=== PATIENT | male | born 1995 | race Caucasian/White ===

== ENCOUNTER 2023-10-31 10:19 | Emergency (ER) | payer OTHER ==
[~2023-10-31] VITALS: Ht 185.4 cm; Wt 100.9 kg
[2023-10-31] MEDS ORDERED: OMEP40CA5 PO (10:36)
[2023-10-31] MEDS ORDERED: DICY-61 PO (10:36)
[2023-10-31] MEDS: METOCLOPRAMIDE INJ 10MG/2ML VIAL IV ONE (12:14)
[2023-10-31] MEDS: KETOROLAC 30 MG/ML 1ML VIAL IV ONE (12:14)
[2023-10-31] MEDS: diphenhydrAMINE 50MG/ML VIAL IV STA (12:14)
[2023-10-31] MEDS: NS 1,000 ML IV ONE (13:01)
[2023-10-31 13:11] VITALS: TEMP 99.7; O2SAT 98
[2023-10-31 13:57] VITALS: BP 126/74
== END 2023-10-31 14:00 | disposition home or self-care (01) ==
LOC: M ED 10:19
DX: J02.9 Acute pharyngitis, unspecified (principal); B34.9 Viral infection, unspecified; Z79.899 Other long term (current) drug therapy
CPT/HCPCS: 87486; 87581; 87633; 87798; 96361; 96374; 99284; J1200; J1885; J2765

== ENCOUNTER → 2024-07-28 | Outpatient (CLI) | payer OTHER ==
[~2024-07-28] MED LIST: DICY-61 PO; OMEP40CA5 PO
== END ==
LOC: M CARPUL 14:36
PROVIDERS: ATTEND Student in an Organized Health Care Education/Training Program
DX: R06.09 Other forms of dyspnea (principal)

== ENCOUNTER → 2024-10-12 | Outpatient (CLI) | payer OTHER | LOC: M RAD 10:45 | PROVIDERS: ATTEND Physician Assistant Medical | DX: R19.4 Change in bowel habit (principal) ==

== ENCOUNTER 2024-10-14 21:50 | Inpatient (IN) | payer OTHER ==
[~2024-10-14] VITALS: Ht 185.4 cm; Wt 110.4 kg
[2024-10-14] MEDS: IBUPROFEN 600MG TAB PO ONE (22:37)
[2024-10-14 22:55] LABS: HEMATOCRIT 43.1 % (42.0-52.0); HEMOGLOBIN 15.4 g/dl (13.5-17.5); MEAN CORPUSCULAR HEMOGLOBIN 30.7 pg (27.0-33.0); MEAN CORPUSCULAR HGB CONC 35.7 g/dl (32.0-36.5); MEAN CORPUSCULAR VOLUME 85.9 fl (80.0-96.0); PLATELET COUNT, AUTOMATED 308 10^3/uL (150-450); RED BLOOD COUNT 5.02 10^6/uL (4.30-6.10); WHITE BLOOD COUNT 10.5 10^3/uL (4.0-10.0)
[2024-10-14 23:19] LABS: AMPHETAMINES LEVEL URINE NEGATIVE (NEGATIVE); BARBITURATES URINE NEGATIVE (NEGATIVE); BENZODIAZEPINES URINE NEGATIVE (NEGATIVE); COCAINE METABOLITE URINE NEGATIVE (NEGATIVE); METHADONE URINE NEGATIVE (NEGATIVE); OPIATES URINE NEGATIVE (NEGATIVE); PHENCYCLIDINE URINE NEGATIVE (NEGATIVE)
[2024-10-14 23:20] LABS: CANNABINOIDS URINE NEGATIVE (NEGATIVE)
[2024-10-14 23:22] LABS: ETHYL ALCOHOL (ETHANOL) < 0.003 % (0.000-0.010)
[2024-10-14 23:23] LABS: SALICYLATE LEVEL < 3.0 MG/DL (<30)
[2024-10-14 23:24] LABS: ALBUMIN 4.4 G/DL (3.2-5.2); ALKALINE PHOSPHATASE 54 U/L (40-129); ALT/SGPT 37 U/L (7.0-40); AST/SGOT 20 U/L (<34); BILIRUBIN,DIRECT 0.1 MG/DL (<0.4); BILIRUBIN,TOTAL 0.4 MG/DL (0.3-1.2); BLOOD UREA NITROGEN 15 MG/DL (9-23); CALCIUM LEVEL 9.5 MG/DL (8.5-10.1); CARBON DIOXIDE LEVEL 24 MMOL/L (20-31); CHLORIDE LEVEL 107 MMOL/L (98-107); GLOMERULAR FILTRATION RATE > 60.0 (>60); GLUCOSE, FASTING 110 MG/DL (60-100); POTASSIUM SERUM 4.2 MMOL/L (3.5-5.1); SODIUM LEVEL 143 MMOL/L (136-145); TOTAL PROTEIN 8.1 G/DL (5.7-8.2)
[2024-10-14 23:26] LABS: THYROID STIMULATING HORMONE 13.153 uIU/ML (0.55-4.78)
[2024-10-15] MEDS: FAMOTIDINE 20 MG TAB PO ONE (00:54)
[2024-10-15] MEDS ORDERED: MOM 30ML SUSPENSION UDC PO PRN (01:20)
[2024-10-15] MEDS ORDERED: traZODone 50 MG TAB PO PRN (01:20)
[2024-10-15] MEDS ORDERED: MAALOX 30 ML SUSP *UDC PO PRN (01:20)
[2024-10-15] MEDS ORDERED: HOME MED LIST COMPLETE! XX SCH (01:30)
[2024-10-15] MEDS ORDERED: MELA5TAB58 PO (01:30)
[2024-10-15] MEDS ORDERED: FAMO1TAB11 PO (01:30)
[2024-10-15] MEDS ORDERED: BUPR-71 PO (01:30)
[2024-10-15] MEDS ORDERED: CELE1CAP99 PO (01:30)
[2024-10-15] MEDS ORDERED: SYNT125T PO (01:30)
[2024-10-15 03:06] VITALS: BP 132/74; TEMP 98
[2024-10-15] MEDS ORDERED: ALBUTEROL 90 MCG/ACT 8GM HFA INHALER INH PRN (15:10)
[2024-10-15] MEDS ORDERED: FLUTICASONE HFA 44MCG 10.6GM INHALER (FLOVENT) INH ONE (15:15)
[2024-10-15] MEDS: CETIRIZINE (ZyrTEC) 10 MG TAB PO ONE (15:39)
[2024-10-15] MEDS: guaiFENesin ER TABLET 600 MG TAB PO ONE (15:39)
[2024-10-15] MEDS: MONTELUKAST 10 MG TAB PO ONE (15:39)
[2024-10-15 16:03] VITALS: BP 130/74; TEMP 97.8; O2SAT 100
[2024-10-15] MEDS ORDERED: traZODone 50 MG TAB PO SCH (16:05)
[2024-10-15] MEDS: buPROPion **XL** TABLET 150MG (WELLBUTRIN XL) PO SCH (16:44)
[2024-10-15] MEDS: ADVAIR HFA 45/21MCG INHALER INH ONE (16:44)
[2024-10-15] MEDS: LEVOTHYROXINE 125MCG TABLET (0.125MG) PO SCH (17:08)
[2024-10-15] MEDS: IBUPROFEN 400MG TAB PO PRN (18:36)
[2024-10-15] MEDS ORDERED: FLUTICASONE HFA 44MCG 10.6GM INHALER (FLOVENT) INH SCH (20:00)
[2024-10-15] MEDS: diphenhydrAMINE 25MG CAP PO PRN (20:57)
[2024-10-15] MEDS: traZODone 50 MG TAB PO SCH (20:57)
[2024-10-15] MEDS: guaiFENesin ER TABLET 600 MG TAB PO SCH (20:57)
[2024-10-15] MEDS: ADVAIR HFA 45/21MCG INHALER INH SCH (20:59)
[2024-10-16 06:30] LABS: HEMOGLOBIN A1c 4.8 % (4.0-6.0)
[2024-10-16 06:36] VITALS: BP 120/63; TEMP 97.9; O2SAT 97
[2024-10-16 06:44] LABS: CHOLESTEROL RISK RATIO 4.07 (<5); HDL CHOLESTEROL 35.8 MG/DL (>40); LDL CHOLESTEROL 83.8 MG/DL (<100); NON-HDL-C 110.2 MG/DL
[2024-10-16 06:46] LABS: FREE THYROXINE INDEX 2.6 % (1.4-3.8); T UPTAKE 37.9 % (22.5-37.0); THYROID STIMULATING HORMONE 4.738 uIU/ML (0.55-4.78); THYROXINE (T4) 6.8 UG/DL (4.5-10.9)
[2024-10-16] MEDS: MONTELUKAST 10 MG TAB PO SCH (08:50)
[2024-10-16] MEDS: CETIRIZINE (ZyrTEC) 10 MG TAB PO SCH (08:50)
[2024-10-16] MEDS: FAMOTIDINE 20 MG TAB PO SCH (08:51)
[2024-10-16 15:52] VITALS: BP 136/79; TEMP 97.6; O2SAT 100
[2024-10-17 06:28] VITALS: BP 126/64; TEMP 97.5; O2SAT 98
[2024-10-17] MEDS: ACETAMINOPHEN 325 MG TAB PO PRN (07:36)
[2024-10-17 15:11] VITALS: BP 145/75; TEMP 97.4; O2SAT 97
[2024-10-17] MEDS: OMEPRAZOLE 20MG CAP PO SCH (20:18)
[2024-10-18 06:34] VITALS: BP 111/61; TEMP 96.9; O2SAT 99
[2024-10-18] MEDS ORDERED: TRAZ-252 PO (09:08)
[2024-10-18] MEDS ORDERED: BUPR150T12 PO (09:08)
[2024-10-18] MEDS ORDERED: MUCI600T31 PO (09:08)
[2024-10-18] MEDS ORDERED: CETI10TA PO (09:08)
[2024-10-18] MEDS ORDERED: VENTAER INH (09:08)
[2024-10-18] MEDS ORDERED: MONT10TA97 PO (09:08)
[2024-10-18] MEDS ORDERED: ADVA45AE INH (09:08)
== END 2024-10-18 11:35 | disposition home or self-care (01) | DRG 885 ==
LOC: M ED 21:50 → M ED INP 10-15 01:18 → M PSY 10-15 03:08
PROVIDERS: ADMIT Psychiatry & Neurology Neurology; ATTEND Psychiatry & Neurology Psychiatry
DX: F33.1 Major depressive disorder, recurrent, moderate (principal); R45.851 Suicidal ideations; F41.0 Panic disorder [episodic paroxysmal anxiety]; Z81.8 Family history of other mental and behavioral disorders; Z91.51 Personal history of suicidal behavior; Z79.890 Hormone replacement therapy; Z79.899 Other long term (current) drug therapy; Z63.0 Problems in relationship with spouse or partner; Z59.9 Problem related to housing and economic circumstances, unspecified; E66.9 Obesity, unspecified; Z68.32 Body mass index [BMI] 32.0-32.9, adult; E06.3 Autoimmune thyroiditis; G47.33 Obstructive sleep apnea (adult) (pediatric); J45.909 Unspecified asthma, uncomplicated

== ENCOUNTER → 2024-10-25 | Outpatient (REF) | payer OTHER ==
[~2024-10-25] MED LIST changes: +ADVA45AE INH; +BUPR-71 PO; +BUPR150T12 PO; +CELE1CAP99 PO; +CETI10TA PO; +FAMO1TAB11 PO; +MELA5TAB58 PO; +MONT10TA97 PO; +MUCI600T31 PO; +SYNT125T PO; +TRAZ-252 PO; +VENTAER INH
== END ==
LOC: M LAB REF 11:38
PROVIDERS: ATTEND Physician Assistant Medical
DX: R19.7 Diarrhea, unspecified (principal)

== ENCOUNTER → 2024-11-14 | Outpatient (CLI) | payer OTHER ==
[~2024-11-14] MED LIST changes: +E-Z-GAS II EFFERVESCENT PACKET (SODIUM BICARB./CITRIC ACID/SIMETHICONE) As Ordered ONE; +E-Z-HD 98% w/w 340GM SUSP BTL As Ordered ONE; +E-Z-PAQUE 96% w/w SUSP 176GM BTL As Ordered ONE
== END ==
LOC: M RAD 09:13
PROVIDERS: ATTEND Physician Assistant Medical
DX: K21.9 Gastro-esophageal reflux disease without esophagitis (principal)

== ENCOUNTER → 2024-11-16 | Outpatient (REF) | payer OTHER ==
[~2024-11-16] MED LIST changes: -E-Z-GAS II EFFERVESCENT PACKET (SODIUM BICARB./CITRIC ACID/SIMETHICONE) As Ordered ONE; -E-Z-HD 98% w/w 340GM SUSP BTL As Ordered ONE; -E-Z-PAQUE 96% w/w SUSP 176GM BTL As Ordered ONE
== END ==
LOC: M SMT 13:11
PROVIDERS: ATTEND Urology
DX: Z30.2 Encounter for sterilization (principal)

== ENCOUNTER → 2024-11-29 | Outpatient (CLI) | payer OTHER ==
[~2024-11-29] MED LIST changes: +FLUTICASONE INH; +METHACHOLINE KIT (6 VIAL.NEB PREMIX) INH ONE; +SYNT150T PO
== END ==
LOC: M CARPUL 08:59
PROVIDERS: ATTEND Internal Medicine Pulmonary Disease
DX: R06.00 Dyspnea, unspecified (principal)

== ENCOUNTER 2024-12-13 12:10 | Day surgery (SDC) | payer OTHER ==
[~2024-12-13] VITALS: Ht 185.4 cm; Wt 110.3 kg
[~2024-12-13 12:10] MED LIST changes: -METHACHOLINE KIT (6 VIAL.NEB PREMIX) INH ONE
[2024-12-13] MEDS ORDERED: HYDR-3363 PO (12:38)
[2024-12-13] MEDS ORDERED: LIDOCAINE 2% 100MG/5ML SDV (FOR ANES.) As Ordered ONE (14:07)
[2024-12-13] MEDS ORDERED: fentaNYL 100 MCG/2 ML INJECTION As Ordered ONE (14:08)
[2024-12-13] MEDS ORDERED: propofoL 200 MG/20 ML VIAL As Ordered ONE (14:08)
[2024-12-13 15:01] VITALS: TEMP 98.1
[2024-12-13 15:21] VITALS: BP 106/59; O2SAT 98
[2024-12-14 08:34] LABS: CLOSTRIDIUM DIFFICILE PCR NEGATIVE (NEGATIVE)
== END 2024-12-13 15:27 | disposition home or self-care (01) ==
LOC: M OPP 12:10
PROVIDERS: ATTEND Internal Medicine Gastroenterology
DX: R19.7 Diarrhea, unspecified (principal); R10.84 Generalized abdominal pain; R13.10 Dysphagia, unspecified; R12 Heartburn; G47.30 Sleep apnea, unspecified; Z79.899 Other long term (current) drug therapy
CPT/HCPCS: 43239; 45380; 87324; 88305; J3010